=== PATIENT | female | born 1960 | race Native Hawaiian/Other Pacific Islander ===

== ENCOUNTER 2017-07-19 23:04 | Emergency (ER) | payer BC ==
[2017-07-19 23:23] VITALS: BMI 27.6
[2017-07-19 23:28] VITALS: RESP 18
--- NOTE | 2017-07-19 23:31 | ED PDOC ---
Arrival/HPI - General Historian: Patient - General Time Seen by Provider: 07/19/17 23:24 - History of Present Illness Narrative History of Present Illness (Text): 07/19/17 23:24 57 year old female, pmh including htn/hyperlipidemia/dm, nkda, complaining of elevated blood pressure at home and feels pressure to the head x 2 hours. Pt. stated that she was having headache tonight about 2 hours ago, not feeling well , went to check the BP which she noted to have 170s/90s which she took lisinopril and repeated half hour later which is at 180s/100s that prompted her to come to the ER, no chest pain or shortness of breath, no numbness or tingling , no night sweat, no rash, no numbness or tingling, no slurred speech, no extremity weakness, no palpitation, no other medical or psychological complaints. (Cristi Domínguez) Past Medical History - Provider Review Nursing Documentation Reviewed: Yes Family/Social History - Physician Review Nursing Documentation Reviewed: Yes Family/Social History: Unknown Family HX Allergies/Home Meds Allergies/Adverse Reactions: Allergies No Known Allergies Allergy (Verified 07/19/17 23:30) Review of Systems - Review of Systems Constitutional: absent: Fatigue, Fevers Eyes: absent: Vision Changes Respiratory: absent: SOB, Cough Cardiovascular: absent: Chest Pain Gastrointestinal: absent: Abdominal Pain, Nausea, Vomiting Musculoskeletal: absent: Arthralgias, Back Pain Skin: absent: Rash, Pruritis Neurological: Headache. absent: Dizziness, Speech Changes, Facial Droop Psychiatric: absent: Anxiety, Depression, Suicidal Ideation Physical Exam Vital Signs Reviewed: Yes Temperature: Afebrile Blood Pressure: Normal Pulse: Regular Respiratory Rate: Normal Appearance: Positive for: Well-Appearing, Non-Toxic, Comfortable Pain Distress: Mild Mental Status: Positive for: Alert and Oriented X 3 - Systems Exam Head: Present: Atraumatic, Normocephalic, Other (no temporal artery tenderness) . No: Tenderness, Contusion, Swelling, Ecchymosis, Abrasion, Laceration Pupils: Present: PERRL Extroacular Muscles: Present: EOMI Conjunctiva: Present: Normal Mouth: Present: Moist Mucous Membranes Nose (Internal): Present: Normal Inspection, No Active Bleeding. No: Rhinorrhea , Septal Hematoma, Epistaxis Neck: Present: Normal Range of Motion Respiratory/Chest: Present: Clear to Auscultation, Good Air Exchange. No: Respiratory Distress, Accessory Muscle Use, Wheezes, Decreased Breath Sounds, Rales, Retracting, Rhonchi, Tachypneic, Tender to Palpation Cardiovascular: Present: Regular Rate and Rhythm, Normal S1, S2. No: Murmurs Abdomen: No: Tenderness, Distention, Peritoneal Signs, Rebound, Guarding Back: Present: Normal Inspection Upper Extremity: Present: Normal Inspection. No: Cyanosis, Edema Lower Extremity: Present: Normal Inspection. No: Edema Neurological: Present: GCS=15, CN II-XII Intact, Speech Normal, Motor Func Grossly Intact, Gait Normal, Memory Normal, Other (no drift, normal finger to nose test, normal heel to arias test, NIHSS is zero) Skin: Present: Warm, Dry, Normal Color. No: Rashes Psychiatric: Present: Alert, Oriented x 3, Normal Insight, Normal Concentration Vital Signs Temp Pulse Resp BP Pulse Ox 07/20/17 03:03 58 L 18 108/70 100 07/20/17 02:39 58 L 18 104/62 99 07/20/17 02:00 48 L 18 81/48 L 100 07/20/17 01:20 68 18 142/80 99 07/19/17 23:27 97.8 F 62 18 180/85 H 100 Medical Decision Making ED Course and Treatment: 07/19/17 23:36 -labs/ua -ekg -CT head -Clonidine 0.2mg po -Observe and reassess 07/20/17 01:57 -NIHSS is zero -EKG: Sinus Bradycardia @ 54 BPM, no ST elevation or depression, no T wave inversion. -CT head ordered and pending result -Labs are non-significant -Pt. stated that the headache feels better but still aching, reglan 10mg IV ordered -BP improved. -Case discussed and endorsed to the incoming attending Dr. Blount for follow up the CT head result. (Cristi Domínguez) 07/20/17 02:01: Case endorsed to me by PUNEET Domínguez. Pending Head CT, reassessment and disposition. CT Head Without Intravenous Contrast Dictated and Authenticated by: Mayuri Hayes MD 07/20/2017 3:24 AM Eastern Time ([place] & [place]) IMPRESSION: No evidence of an acute intracranial abnormality. (Humberto Blount) - Lab Interpretations Lab Results: 07/19/17 23:50 07/19/17 23:50 Lab Results 07/19/17 23:50: WBC 5.4, RBC 4.36, Hgb 13.3, Hct 39.1, MCV 89.7, MCH 30.5, MCHC 34.0, RDW 12.0, Plt Count 200, MPV 10.5, Gran % 44.7 L, Lymph % (Auto) 43.3 H, [place] % (Auto) 7.2 H, Eos % (Auto) 3.1, Baso % (Auto) 1.7, Gran # 2.43, Lymph # ( Auto) 2.4, [place] # (Auto) 0.4, Eos # (Auto) 0.2, Baso # (Auto) 0.09 07/19/17 23:50: Sodium 142, Potassium 3.8, Chloride 103, Carbon Dioxide 27, Anion Gap 16, BUN 12, Creatinine 0.6 L, Est GFR ( Amer) > 60, Est GFR ( Non-Af Amer) > 60, Random Glucose 127 H, Calcium 9.1, Magnesium 1.9, Total Bilirubin 0.2, AST 30, ALT 28, Alkaline Phosphatase 76, Total Protein 7.6, Albumin 4.4, Globulin 3.2, Albumin/Globulin Ratio 1.4 - RAD Interpretation Radiology Orders: 07/19/17 23:32 HEAD W/O CONTRAST [CT] Stat - Medication Orders Current Medication Orders: Discontinued Medications Acetaminophen (Tylenol 325mg Tab) 650 mg PO STAT STA Stop: 07/19/17 23:35 Last Admin: 07/19/17 23:56 Dose: 650 mg Clonidine HCl (Catapres) 0.2 mg PO STAT STA Stop: 07/19/17 23:33 Last Admin: 07/19/17 23:57 Dose: 0.2 mg Sodium Chloride (Sodium Chloride 0.9%) 1,000 mls @ 999 mls/hr IV .Q1H1M STA Stop: 07/20/17 02:49 Last Admin: 07/20/17 01:49 Dose: 999 mls/hr eMAR Start Stop Document 07/20/17 01:49 VASILIY (Rec: 07/20/17 02:19 [email or web address] [id number]) Intravenous Solution Start Date 07/20/17 Start Time 01:49 End Date 07/20/17 End time 02:49 Total Infusion Time 60 Metoclopramide HCl (Reglan) 10 mg IVP STAT STA Stop: 07/20/17 01:55 Last Admin: 07/20/17 01:49 Dose: 10 mg IVP Administration Document 07/20/17 01:49 VASILIY (Rec: 07/20/17 02:20 [email or web address] [id number]) Charges for Administration # of IVP Administrations 1 - PA / [employer] / Resident Statement MD/DO has reviewed & agrees with the documentation as recorded. Disposition/Present on Arrival - Present on Arrival Any Indicators Present on Arrival: No History of DVT/PE: No History of Uncontrolled Diabetes: No Urinary Catheter: No History of Decub. Ulcer: No - Disposition Have Diagnosis and Disposition been Completed?: Yes Disposition Time: 23:37 - Disposition Diagnosis: Headache, Hypertension Disposition: HOME/ ROUTINE Patient Problems: Current Active Problems Problem Status Onset Headache Acute Hypertension Acute Condition: STABLE Discharge Instructions (ExitCare): High Blood Pressure (DC), Headache, Adult ( DC) Additional Instructions: follow up with your doctor. return to er with worsening symptoms or concerns. Referrals: Glynn Street MD [Primary Care Provider] - Follow up with primary
[2017-07-20 00:10] LABS: BASO # 0.09 K/mm3 (0.0-2.0); BASO % 1.7 % (0.0-3.0); EOS # 0.2 (0.0-0.7); EOS % 3.1 % (1.5-5.0); GRAN # 2.43 (1.4-6.5); GRAN % 44.7 % (50.0-68.0); HEMOGLOBIN 13.3 g/dL (12.0-16.0); LYMPH # 2.4 (1.2-3.4); LYMPH % 43.3 % (22.0-35.0); MEAN CELL VOLUME 89.7 fl (80.0-105.0); MEAN CORPUSCULAR HEMOGLOBIN 30.5 pg (25.0-35.0); MEAN PLATELET VOLUME 10.5 fl (7.0-11.0); MONO # 0.4 (0.1-0.6); MONO % 7.2 % (1.0-6.0); RBC 4.36 10^6/uL (3.5-6.1); WHITE BLOOD COUNT 5.4 10^3/ul (4.5-11.0)
[2017-07-20 00:12] LABS: ALB/GLOB RATIO 1.4 (1.1-1.8); ALBUMIN 4.4 g/dL (3.0-4.8); ALT/SGPT 28 U/L (7-56); AST/SGOT 30 U/L (14-36); BLOOD UREA NITROGEN 12 mg/dL (7-21); CALCIUM 9.1 mg/dL (8.4-10.5); GFR AFRICAN-AMERICAN > 60; GFR NON-AFRICAN AMERICAN > 60
[2017-07-20] MEDS ORDERED: Sodium Chloride 0.9% 1,000 ML IV STA (01:49)
[2017-07-20 03:04] VITALS: O2SAT 100
--- NOTE | 2017-07-20 03:24 | CT ---
EXAM: CT Head Without Intravenous Contrast CLINICAL HISTORY: 57 years old, female; Pain; Headache; Headache not specified; Additional info: HTN, R/O bleed TECHNIQUE: Axial computed tomography images of the head/brain without intravenous contrast. All CT scans at this facility use one or more dose reduction techniques, viz.: automated exposure control; ma/kV adjustment per patient size (including targeted exams where dose is matched to indication; i.e. head); or iterative reconstruction technique. Coronal and sagittal reformatted images were created and reviewed. COMPARISON: No relevant prior studies available. FINDINGS: Brain: Unremarkable. No hemorrhage. No significant white matter disease. No edema. Ventricles: Unremarkable. No ventriculomegaly. Bones/joints: Unremarkable. No acute fracture. Soft tissues: Unremarkable. Sinuses: Unremarkable as visualized. No acute sinusitis. Mastoid air cells: Unremarkable as visualized. No mastoid effusion. IMPRESSION: No evidence of an acute intracranial abnormality.
[2017-07-20 05:58] VITALS: BP 112/68; PULSE 52; TEMP 98.2
--- NOTE | 2017-07-20 10:56 | CARD ---
APPROVED REPORT EKG Measurement Heart [id number] WV 150P-8 [id number] <Conclusion> Sinus bradycardia LVH by voltage
== END 2017-07-20 05:55 | disposition home or self-care (01) ==
LOC: ED 23:04
DX: R51 Headache (principal); I10 Essential (primary) hypertension; E11.9 Type 2 diabetes mellitus without complications; E78.5 Hyperlipidemia, unspecified
CPT/HCPCS: 70450; 80053; 83735; 85025; 93005; 96361; 96374; 99285; J2765; J7030